=== PATIENT | male | born 1955 | race Caucasian/White ===

== ENCOUNTER 2023-10-31 06:02 | Day surgery (SDC) | payer OTHER ==
[~2023-10-31] VITALS: Ht 167.6 cm; Wt 63.5 kg
[2023-10-31] VITALS (15 sets, daily range): BP systolic 84–115; BP diastolic 56–80; PULSE 68–80; RESP 10–18
[~2023-10-31 06:02] MED LIST: ATOR10 PO; LOSA100T59 PO
[2023-10-31] MEDS: 0.9%NACL 1000ML 1,000 ML IV ONE (07:02)
[2023-10-31] MEDS ORDERED: FENTANYL CITRATE PF 50 MCG/1 ML 2ML VIAL ONE (07:20)
[2023-10-31] MEDS ORDERED: PROPOFOL 10 MG/ML 20ML VIAL IV ONE ×4 (07:20→08:45)
[2023-10-31] MEDS ORDERED: LIDOCAINE PF 100MG/5ML (2%) SYRINGE 5ML ONE (07:21)
[2023-10-31] MEDS ORDERED: DEXAMETHASONE SOD PHOSPHATE 4 MG/ML 1ML VIAL ONE (08:11)
[2023-10-31] MEDS ORDERED: IPRATROPIUM/ALBUTEROL SULFATE 3 ML SOLUTION IH ONE (09:30)
[2023-10-31] MEDS: IPRATROPIUM/ALBUTEROL SULFATE 3 ML SOLUTION IH ONE (09:40)
== END 2023-10-31 11:10 | disposition home or self-care (01) ==
LOC: DAH 06:02 → ENDO 06:02
PROVIDERS: ATTEND Internal Medicine Gastroenterology
DX: R19.5 Other fecal abnormalities (principal); D12.2 Benign neoplasm of ascending colon; D12.5 Benign neoplasm of sigmoid colon; D12.8 Benign neoplasm of rectum; K64.3 Fourth degree hemorrhoids; I10 Essential (primary) hypertension; I82.401 Acute embolism and thrombosis of unspecified deep veins of right lower extremity; I82.4Z2 Acute embolism and thrombosis of unspecified deep veins of left distal lower extremity; Z79.899 Other long term (current) drug therapy; Z98.890 Other specified postprocedural states
CPT/HCPCS: 71045; 45381; 45380; 45385; 93005; 94640; J3010; J7030 ×2; J2001; J2704 ×4; J1100; A4620; A4215 ×2; A4223; A4657; A7002; A4222; A4221; A4606; J3490

== ENCOUNTER → 2024-02-06 | Outpatient (CLI) | payer OTHER ==
[~2024-02-06] MED LIST changes: +ALBUMIN (HUMAN) 25% 200 ML IV ONE
[2024-02-06 10:01] LABS: BASOPHILS # (AUTO) 0.11 K/uL (0.00-0.20); BASOPHILS % (AUTO) 1.4 % (0.0-5.0); EOSINOPHILS # (AUTO) 1.19 K/uL (0.00-0.70); EOSINOPHILS % (AUTO) 15.4 % (0.0-8.0); HEMATOCRIT 36.4 % (42-54); IMMATURE GRANULOCYTE ABSOLUTE 0.03 K/uL (0-1); LYMPHOCYTES # (AUTO) 2.2 K/uL (1.0-4.8); LYMPHOCYTES % (AUTO) 27.8 % (21.0-51.0); MEAN CORPUSCULAR HEMOGLOBIN 35.9 pg (27.0-33.0); MEAN CORPUSCULAR HGB CONC 33.8 g/dL (32.0-36.0); MEAN CORPUSCULAR VOLUME 106.1 fL (79-99); MONOCYTES # (AUTO) 0.8 K/uL (0.1-1.0); MONOCYTES % (AUTO) 9.9 % (3.0-13.0); NEUTROPHILS # (AUTO) 3.5 K/uL (1.8-7.7); NEUTROPHILS % (AUTO) 45.1 % (40.0-77.0); PLATELET COUNT (AUTO) 143 K/uL (130-400); RED BLOOD CELL COUNT(AUTO) 3.43 MIL/uL (4.50-6.20); RED CELL DISTRIBUTION WIDTH 13.2 % (11.0-15.5); WHITE BLOOD COUNT (AUTO) 7.7 K/uL (4.8-10.8)
[2024-02-06 10:14] LABS: INR 1.04 (0.85-1.15); PROTHROMBIN TIME 12.2 SEC (9.6-11.6)
[2024-02-06 10:15] LABS: ALBUMIN 2.5 g/dL (3.5-5.0); BILIRUBIN,TOTAL 0.6 mg/dL (0.2-1.0); CREATININE 0.8 mg/dL (0.5-1.3); PARTIAL THROMBOPLASTIN TIME 29.9 SEC (26.3-35.5); POTASSIUM 4.3 mmol/L (3.5-5.1); TOTAL PROTEIN, SERUM 6.3 g/dL (6.0-8.3)
[2024-02-06 14:07] LABS: TOTAL PROTEIN,BODY FLUID 2.1 g/dL
[2024-02-06 14:47] LABS: SPECIMENTYPE,BODY FLUID ASCITES
[2024-02-06 14:48] LABS: APPEARANCE BODY FLUID SLIGHTLY CLOUDY (CLEAR); COLOR,BODY FLUID YELLOW (LT YELLOW); TOTAL VOLUME,BODY FLUID 5000 mL
[2024-02-06 14:54] LABS: BODY FLUID RBC 0 /cu. mm.; BODY FLUID WBC 274 /cu. mm.
[2024-02-06 18:01] LABS: BF LYMPHOCYTE 70 %; BF MONOCYTE 11 %; BF TOTAL CELLS COUNTED 100
== END | disposition home or self-care (01) ==
LOC: RAH 09:17
PROVIDERS: ATTEND Internal Medicine Gastroenterology
DX: R18.8 Other ascites (principal); K76.9 Liver disease, unspecified; R93.2 Abnormal findings on diagnostic imaging of liver and biliary tract; I10 Essential (primary) hypertension; E78.5 Hyperlipidemia, unspecified; I25.2 Old myocardial infarction; F17.210 Nicotine dependence, cigarettes, uncomplicated; R14.0 Abdominal distension (gaseous); R63.4 Abnormal weight loss; Z86.010 Personal history of colon polyps; Z68.21 Body mass index [BMI] 21.0-21.9, adult; Z79.01 Long term (current) use of anticoagulants; Z79.899 Other long term (current) drug therapy
CPT/HCPCS: 49083; 84157; 80053; 85025; 89051; 85610; 85730; 87071; 87076; 87205; 82105; 82042; 36415; 88305; 88112; P9046; C1729

== ENCOUNTER → 2025-07-14 | Outpatient (CLI) | payer OTHER ==
[~2025-07-14] MED LIST changes: -ALBUMIN (HUMAN) 25% 200 ML IV ONE; +IOHEXOL 350 MG/ML 100ML INFUS..BTL IV ONE; +IOHEXOL-350 50ML VIAL IV ONE
--- NOTE | 2025-07-15 00:53 | HMCIMG ---
EXAM: CTA Abdomen and Pelvis With Runoff to the Lower Extremities with Intravenous Contrast CLINICAL HISTORY: Essential (primary) hypertension TECHNIQUE: Axial CTA images of the abdomen, pelvis, and lower extremities acquired in the arterial phase following intravenous contrast administration. Coronal, sagittal, and 3-D reconstructions reviewed on an independent workstation. Total DLP 560 mGy???cm. CONTRAST: With intravenous contrast. COMPARISON: None provided. FINDINGS: Aorta: Diffuse [id number] calcific atherosclerosis of the abdominal aorta and its major branches. No aneurysm or dissection. Calcified plaques in the distal abdominal aorta cause luminal narrowing of approximately 50???60 percent. Inferior vena cava filter device is seen at the infrarenal level in appropriate position. Celiac Trunk: Ostial atherosclerotic plaque causing up to 40 percent luminal stenosis. Superior Mesenteric Artery: Atherosclerotic plaque extending for approximately 3 cm from the origin with less than 20 percent luminal narrowing. Inferior Mesenteric Artery: Patent without significant stenosis. Renal Arteries: Extensive calcified plaques involving both ostia causing up to 50 percent stenosis on the right and approximately 1 cm segmental 50 percent narrowing on the left. Right Iliac Arteries: Calcified plaques involving the common iliac artery cause 50???60 percent luminal narrowing. Focal filling defect in the external iliac artery results in up to 60 percent luminal stenosis. Left Iliac Arteries: Calcified plaques causing 50???60 percent luminal narrowing in the common iliac artery. Filling defect in the external iliac artery results in approximately 40 percent narrowing. Femoral and Popliteal Arteries: Distal superficial femoral and popliteal arteries show scattered calcified plaques with less than 50 percent luminal narrowing. Tibial and Peroneal Arteries: Extensive calcific atherosclerosis in the common peroneal artery extending to the level of bifurcation with moderate luminal narrowing. Lower Thorax: Hiatus hernia measuring 2.5 cm. No consolidation or pleural effusion. Abdomen: Liver unremarkable. Gallbladder, pancreas, spleen, and adrenals within normal limits. Appendix measures 0.4 cm and appears normal. Kidneys and Ureters: Symmetric contrast enhancement. No hydronephrosis or calculus. Bowel and Peritoneum: No obstruction or inflammatory wall thickening. No free fluid or free air. Pelvis: Prostatomegaly measuring approximately 40 cc. Bladder and reproductive organs otherwise unremarkable. No lymphadenopathy. Bones: No acute osseous abnormality. IMPRESSION: * Diffuse [id number] calcific atherosclerotic disease of the abdominal aorta and major branches with distal aortic and bilateral common iliac stenoses of approximately 50???60 percent. * Right external iliac artery showing 60 percent luminal narrowing and left external iliac artery 40 percent narrowing. * Bilateral renal ostial stenoses of approximately 50 percent, moderate, possibly contributing to renovascular hypertension. * Celiac trunk ostial narrowing of 40 percent and mild superior mesenteric artery origin plaque with less than 20 percent narrowing. * Diffuse peripheral arterial calcification involving distal superficial femoral, popliteal, and peroneal arteries without occlusion. * Infrarenal inferior vena cava filter device in satisfactory position. * Small hiatus hernia. * Prostatomegaly (40 cc). * Radiologic???Clinical Correlation: Findings represent moderate diffuse systemic atherosclerotic disease as per AHA and SCCT stenosis grading standards. Correlate clinically for renovascular hypertension and peripheral arterial insufficiency; follow-up CTA or Doppler recommended for surveillance. /[place]
== END | disposition home or self-care (01) ==
LOC: RAH 08:28
PROVIDERS: ATTEND Student in an Organized Health Care Education/Training Program
DX: I70.0 Atherosclerosis of aorta (principal); I70.8 Atherosclerosis of other arteries; K44.9 Diaphragmatic hernia without obstruction or gangrene; N40.0 Benign prostatic hyperplasia without lower urinary tract symptoms; I10 Essential (primary) hypertension; K55.1 Chronic vascular disorders of intestine; I70.1 Atherosclerosis of renal artery; I70.209 Unspecified atherosclerosis of native arteries of extremities, unspecified extremity
CPT/HCPCS: 75635; Q9967 ×2